=== PATIENT | male | born 1955 | race Caucasian/White ===

== ENCOUNTER 2018-08-28 09:06 | Emergency (ER) | payer MEDICARE ==
[~2018-08-28] VITALS: Ht 177.8 cm; Wt 125.2 kg
--- NOTE | ~2018-08-28 | EKG ---
[place], [place] ELECTROCARDIOGRAM REPORT NAME: RIVERA PACHECO UNIT #: [id number] ROOM: DOCTOR: EPIPHANY DRAFT REPORT BIRTHDATE: [birth year] [facility] Test Date: 2018-08-28 Test Time: 09:59:17 Pat Name: RIVERA PACHECO Department: Room: Gender: Joss House Keeper: : 1955 Requested By: GAIL ECHAVARRIA Order Number: [id number] Reading MD: David Griggs Measurements Intervals [place] Rate: 73 P: 31 TN: 166 QRS: -48 QRSD: 100 T: 10 QT: 442 QTc: 488 Interpretive Statements Sinus rhythm Abnormal R-wave progression, late transition Inferior infarct, old No previous ECG available for comparison Electronically Signed On 08-28-2018 11:58:49 PDT by David Griggs CM:EKGRPT:ELECTROCARDIOGRAM REPORT [id number] GAIL BAKER DRAFT REPORT GAIL ECHAVARRIA MD
[2018-08-28 10:26] LABS: BASO # 0.1 10*3/uL (0.0-0.1); BASO % 0.3 % (0.0-1.0); HEMATOCRIT 47.9 % (42.0-52.0); HEMOGLOBIN 16.6 g/dl (14.0-18.0); LYMPH # 3.1 10*3/uL (1.3-4.4); LYMPH % 15.4 % (27.0-41.0); MEAN CELL VOLUME 87.4 fl (80.0-94.0); MEAN CORPUSCULAR HGB 30.3 pg (27.0-31.0); MEAN CORPUSCULAR HGB CONC 34.7 g/dl (33.0-37.0); MEAN PLATELET VOLUME 9.7 fl (9.6-12.3); MONO # 0.9 10*3/uL (0.1-1.0); MONO % 4.7 % (3.0-9.0); NEUT # 15.8 10*3/uL (2.3-7.9); NEUT % 79.3 % (47.0-73.0); PLATELET COUNT AUTOMATED 238 10*3/uL (130-400); RED BLOOD COUNT 5.48 10*6/uL (4.50-5.90); RED CELL DISTRI WIDTH 12.8 % (0-14.5); WHITE BLOOD COUNT 19.9 10*3/uL (4.8-10.8)
[2018-08-28 10:36] LABS: ABG BASE EXCESS -1.8 mmol/L (-2.0-2.0); ABG HCO3 22.8 mmol/l (22-26); ABG O2 SATURATION 96.8 % (95-97); ARTERIAL BLOOD GAS PH 7.389 (7.35-7.45)
[2018-08-28 10:36] LABS: ACT PARTIAL THROMBO TIME 21.7 SECONDS (20.0-32.1)
[2018-08-28 10:45] LABS: ALBUMIN 3.7 gm/dl (3.1-4.5); ALKALINE PHOSPHATASE 86 U/L (45-117); BUN 23 mg/dl (7-24); CHLORIDE 105 mmol/L (98-107); POTASSIUM 3.7 mmol/L (3.5-5.1); SGOT/AST 39 IU/L (3-35); SGPT/ALT 38 U/L (12-78); SODIUM 140 mmol/L (136-145)
[2018-08-28 10:47] LABS: ETHYL ALCOHOL < 3.0 mg/dl (<3); TROPONIN I < 0.015 ng/ml (<0.045)
== END 2018-08-28 11:25 | disposition short-term general hospital (02) ==
LOC: ED 09:06
PROVIDERS: Emergency Medicine
DX: I61.9 Nontraumatic intracerebral hemorrhage, unspecified (principal)

== ENCOUNTER 2018-11-04 10:52 | Emergency (ER) | payer MEDICARE ==
[~2018-11-04] VITALS: Ht 172.7 cm; Wt 104.8 kg
[2018-11-04 11:55] LABS: BILIRUBIN NEGATIVE (NEGATIVE); BLOOD 1+ (NEGATIVE); CLARITY SL CLOUDY (CLEAR); COLOR YELLOW (YELLOW); GLUCOSE NEGATIVE (NEGATIVE); KETONE NEGATIVE (NEGATIVE); LEUKO ESTERASE NEGATIVE (NEGATIVE); NITRITE NEGATIVE (NEGATIVE); SPECIFIC GRAVITY 1.015 (1.005-1.030)
[2018-11-04 12:04] LABS: BASO # 0.1 10*3/uL (0.0-0.1); BASO % 1.1 % (0.0-1.0); EOS # 0.4 10*3/uL (0.0-0.4); HEMOGLOBIN 12.1 g/dl (14.0-18.0); LYMPH # 3.6 10*3/uL (1.3-4.4); LYMPH % 33.2 % (27.0-41.0); MEAN CELL VOLUME 92.5 fl (80.0-94.0); MEAN CORPUSCULAR HGB 30.3 pg (27.0-31.0); MEAN CORPUSCULAR HGB CONC 32.7 g/dl (33.0-37.0); MEAN PLATELET VOLUME 9.2 fl (9.6-12.3); MONO # 0.7 10*3/uL (0.1-1.0); MONO % 6.5 % (3.0-9.0); NEUT # 5.9 10*3/uL (2.3-7.9); NEUT % 54.6 % (47.0-73.0); PLATELET COUNT AUTOMATED 283 10*3/uL (130-400); RED CELL DISTRI WIDTH 14.8 % (0-14.5); WHITE BLOOD COUNT 10.7 10*3/uL (4.8-10.8)
[2018-11-04 12:15] LABS: BACTERIA 1+; CALCIUM OXALATE CRYSTALS 1+; MUCOUS 1+; RBC TNTC rbc/hpf (0-2)
[2018-11-04 12:19] LABS: ALBUMIN 3.1 gm/dl (3.1-4.5); ALKALINE PHOSPHATASE 170 U/L (45-117); BUN 14 mg/dl (7-24); CHLORIDE 108 mmol/L (98-107); POTASSIUM 3.7 mmol/L (3.5-5.1); SGOT/AST 59 IU/L (3-35); SGPT/ALT 297 U/L (12-78); SODIUM 141 mmol/L (136-145); TOTAL PROTEIN 6.4 gm/dL (6.4-8.2)
--- NOTE | 2018-11-04 13:42 | NUR ---
GENERAL OPHTHALMOLOGIST completed PASRR for the patient to go to [place], however the patients family [facility]. [facility] was [facility] to [facility].-LUKE aBrajas
== END 2018-11-04 17:57 | disposition home or self-care (01) ==
LOC: ED 10:52
PROVIDERS: Emergency Medicine
DX: R33.9 Retention of urine, unspecified (principal); R53.1 Weakness; I12.9 Hypertensive chronic kidney disease with stage 1 through stage 4 chronic kidney disease, or unspecified chronic kidney disease; E11.22 Type 2 diabetes mellitus with diabetic chronic kidney disease; N18.9 Chronic kidney disease, unspecified; I25.10 Atherosclerotic heart disease of native coronary artery without angina pectoris; Z95.1 Presence of aortocoronary bypass graft

== ENCOUNTER → 2018-12-16 | Day surgery (SDC) | payer MEDICARE ==
[~2018-12-16] VITALS: Ht 175.2 cm; Wt 105.2 kg
[~2018-12-16] MED LIST: ACETAMINOPHEN325 M2 PO; AMLODIPINE BESYL5 MG PO; ASPIRIN CHEWABL81 MG PO; CHLORPROMAZINE25 M1 PO; CRESTOR20 M1 PO; DOCUSATE SODIU100 M2 PO; FLOMAX0.4 MG PO; KLOR-CON M2020 ME1 PO; LANTUS SOL100 UNIT/1 SQ; LOSARTAN POTASS25 M1 PO; LOSARTAN POTASS50 M1 PO; PROTONIX40 MG PO; SEROQUEL25 MG PO
[2018-12-16 12:00] VITALS: BP 123/67
--- NOTE | 2018-12-16 12:57 | NUR ---
DR FREEMAN AT BEDSIDE TALKED TO PATIENT AND FAMILY. COMFIRMED REMOVAL OF PEG TUBE. LEONARD IVERSON RN
[2018-12-16 13:13] VITALS: BP 132/75
--- NOTE | 2018-12-16 13:14 | NUR ---
PEG TUBE REMOVED BY DR FREEMAN. PRESSURE DRESSING APPLIED. NO BLEEDING NOTED. PATIENT TOLERATED WELL. DENIES DISCOMFORT. VSS REMAIN STABLE. LEONARD IVERSON RN
--- NOTE | 2018-12-16 13:15 | NUR ---
REPORT CALLED TO CINTHYA NURSE CARING FOR PATIENT AT [facility]. LEONARD IVERSON RN
== END | disposition home or self-care (01) ==
LOC: SDC 12-13 14:00
DX: Z43.1 Encounter for attention to gastrostomy (principal); I69.959 Hemiplegia and hemiparesis following unspecified cerebrovascular disease affecting unspecified side; I10 Essential (primary) hypertension; I25.10 Atherosclerotic heart disease of native coronary artery without angina pectoris; E11.9 Type 2 diabetes mellitus without complications; F41.9 Anxiety disorder, unspecified; F32.9 Major depressive disorder, single episode, unspecified; Z98.890 Other specified postprocedural states; Z79.899 Other long term (current) drug therapy

== ENCOUNTER → 2020-04-27 | Outpatient (CLI) | payer MEDICARE ==
[2020-04-27 10:48] LABS: HEMATOCRIT 47.7 % (42.0-52.0); MEAN CELL VOLUME 87.8 fl (80.0-94.0); MEAN CORPUSCULAR HGB 28.9 pg (27.0-31.0); MEAN CORPUSCULAR HGB CONC 32.9 g/dl (33.0-37.0); MEAN PLATELET VOLUME 9.4 fl (9.6-12.3); PLATELET COUNT AUTOMATED 222 10*3/uL (130-400); RED BLOOD COUNT 5.43 10*6/uL (4.50-5.90); RED CELL DISTRI WIDTH 12.9 % (0-14.5); WHITE BLOOD COUNT 17.2 10*3/uL (4.8-10.8)
[2020-04-27 10:49] LABS: ALBUMIN 3.9 gm/dl (3.1-4.5); BUN 15 mg/dl (7-24); CHLORIDE 108 mmol/L (98-107); CHOLESTEROL 130 mg/dL (<200); CREATININE 1.04 mg/dL (0.70-1.30); POTASSIUM 3.8 mmol/L (3.5-5.1); SGOT/AST 19 IU/L (3-35); SGPT/ALT 25 U/L (12-78); SODIUM 143 mmol/L (136-145); TOTAL PROTEIN 7.1 gm/dL (6.4-8.2); TRIGLYCERIDES 191 mg/dl (<150); VLDL CHOLESTEROL 38 mg/dL (6-40)
[2020-04-27 10:59] LABS: ALKALINE PHOSPHATASE 70 U/L (45-117); HDL CHOLESTEROL 38 mg/dl (40-60); LDL CHOLESTEROL 54 mg/dL (9-159)
[2020-04-27 11:14] LABS: TOTAL CELLS COUNTED 100 #CELLS
[2020-04-27 11:15] LABS: PLATELET SUFFICIENCY NORMAL (NORMAL)
== END | disposition home or self-care (01) ==
LOC: LAB 09:26
PROVIDERS: ATTEND Nurse Practitioner Primary Care
DX: E11.9 Type 2 diabetes mellitus without complications (principal)

== ENCOUNTER → 2020-11-06 | Outpatient (CLI) | payer MEDICARE | END | disposition home or self-care (01) | LOC: CARD 00:13 | PROVIDERS: ATTEND Internal Medicine Cardiovascular Disease | DX: I10 Essential (primary) hypertension (principal); R94.31 Abnormal electrocardiogram [ECG] [EKG]; I25.10 Atherosclerotic heart disease of native coronary artery without angina pectoris; R06.00 Dyspnea, unspecified; Z95.1 Presence of aortocoronary bypass graft ==

== ENCOUNTER 2022-12-26 10:46 | Inpatient (IN) | payer MEDICARE ==
[~2022-12-26] VITALS: Ht 175.2 cm; Wt 106.0 kg
[~2022-12-26 10:46] MED LIST changes: +DECADRON6 M1 PO; +LASIX20 MG PO; +VIBRA-TAB100 MG PO
[2022-12-26 10:50] VITALS: BP 144/85
[2022-12-26 11:44] LABS: HEMATOCRIT 48.4 % (42.0-52.0); MEAN CELL VOLUME 84.5 fl (80.0-94.0); MEAN CORPUSCULAR HGB 29.1 pg (27.0-31.0); MEAN CORPUSCULAR HGB CONC 34.5 g/dl (33.0-37.0); MEAN PLATELET VOLUME 8.8 fl (9.6-12.3); PLATELET COUNT AUTOMATED 189 10*3/uL (130-400); RED BLOOD COUNT 5.73 10*6/uL (4.50-5.90); RED CELL DISTRI WIDTH 13.5 % (0-14.5); WHITE BLOOD COUNT 31.8 10*3/uL (4.8-10.8)
[2022-12-26 11:52] LABS: MANUAL DIFF REFLEX YES
[2022-12-26 11:59] LABS: ACT PARTIAL THROMBO TIME 27.5 SECONDS (20.0-32.1)
[2022-12-26 12:07] LABS: ALKALINE PHOSPHATASE 105 U/L (46-116); BUN 11 mg/dl (9-23); CHLORIDE 108 mmol/L (98-107); LIPASE 34 U/L (12-53); POTASSIUM 4.5 mmol/L (3.4-5.1); SGPT/ALT 15 U/L (10-49); TOTAL PROTEIN 6.4 gm/dL (6.0-8.0)
[2022-12-26 12:15] LABS: ETHYL ALCOHOL < 3.0 mg/dl (<3)
[2022-12-26] MEDS ORDERED: LOSARTAN POTASS50 M1 PO (12:17)
[2022-12-26] MEDS ORDERED: GLIPIZIDE10 M2 PO (12:17)
[2022-12-26] MEDS ORDERED: METFORMIN HYDR500 MG PO (12:18)
[2022-12-26 12:22] VITALS: BP 124/73
[2022-12-26 12:54] LABS: PLATELET SUFFICIENCY NORMAL (NORMAL); TOTAL CELLS COUNTED 100 #CELLS
[2022-12-26 17:31] VITALS: BP 138/77
[2022-12-26 18:12] LABS: BILIRUBIN Negative (Negative); BLOOD Negative (Negative); CLARITY Turbid (Clear); COLOR Yellow (Yellow); GLUCOSE Negative (Negative); KETONE Negative (Negative); LEUKO ESTERASE Negative (Negative); NITRITE Negative (Negative); SPECIFIC GRAVITY >= 1.030 (1.001-1.030)
[2022-12-26 18:19] LABS: URINE AMPHETAMINES Negative (1000ng/ml); URINE BARBITURATES Negative (200ng/ml); URINE BENZODIAZEPINES Negative (200ng/ml); URINE CANNABINOIDS (THC) Negative (50ng/ml); URINE COCAINE Negative (300ng/ml); URINE METHADONE Negative (300ng/ml); URINE OPIATES Negative (300ng/ml); URINE PHENCYCLIDINE Negative (25ng/ml)
[2022-12-26 18:21] LABS: BACTERIA 1+
[2022-12-26 18:22] LABS: WBC 0-2 wbc/hpf (0-5)
[2022-12-26 20:00] VITALS: BP 106/66; BP 150/78
[2022-12-27] VITALS: BP 130/75
[2022-12-27 06:58] LABS: HEMATOCRIT 44.1 % (42.0-52.0); MEAN CELL VOLUME 83.8 fl (80.0-94.0); MEAN CORPUSCULAR HGB 28.9 pg (27.0-31.0); MEAN CORPUSCULAR HGB CONC 34.5 g/dl (33.0-37.0); MEAN PLATELET VOLUME 8.7 fl (9.6-12.3); PLATELET COUNT AUTOMATED 193 10*3/uL (130-400); RED BLOOD COUNT 5.26 10*6/uL (4.50-5.90); RED CELL DISTRI WIDTH 13.4 % (0-14.5); WHITE BLOOD COUNT 34.9 10*3/uL (4.8-10.8)
[2022-12-27 07:01] LABS: MANUAL DIFF REFLEX YES
[2022-12-27 08:00] VITALS: BP 127/81
[2022-12-27 08:09] LABS: BASOPHILS 1 % (0-1); TOTAL CELLS COUNTED 100 #CELLS
[2022-12-27 08:10] LABS: PLATELET SUFFICIENCY NORMAL (NORMAL); ROULEAUX SLIGHT
[2022-12-27 08:51] LABS: ALKALINE PHOSPHATASE 96 U/L (46-116); BUN 7 mg/dl (9-23); CHLORIDE 108 mmol/L (98-107); CHOLESTEROL 216 mg/dL (<200); FREE T4 1.04 ng/dl (0.89-1.76); LDL CHOLESTEROL 134 mg/dL (9-159); SGPT/ALT 11 U/L (10-49); TOTAL PROTEIN 5.8 gm/dL (6.0-8.0); TRIGLYCERIDES 272 mg/dl (<150)
[2022-12-27 09:12] LABS: POTASSIUM 3.5 mmol/L (3.4-5.1)
[2022-12-27 09:40] LABS: VITAMIN D, 25-HYDROXY 28.1 ng/mL (30-100)
[2022-12-27 12:00] VITALS: BP 124/75
[2022-12-27 16:00] VITALS: BP 126/77
[2022-12-27 20:00] VITALS: BP 123/64
[2022-12-28] VITALS: BP 122/81
[2022-12-28 06:41] LABS: BUN 10 mg/dl (9-23); CHLORIDE 108 mmol/L (98-107); POTASSIUM 3.6 mmol/L (3.4-5.1)
[2022-12-28 06:44] LABS: HEMATOCRIT 43.3 % (42.0-52.0); MEAN CELL VOLUME 85.7 fl (80.0-94.0); MEAN CORPUSCULAR HGB 29.5 pg (27.0-31.0); MEAN CORPUSCULAR HGB CONC 34.4 g/dl (33.0-37.0); MEAN PLATELET VOLUME 9.4 fl (9.6-12.3); PLATELET COUNT AUTOMATED 185 10*3/uL (130-400); RED BLOOD COUNT 5.05 10*6/uL (4.50-5.90); RED CELL DISTRI WIDTH 13.5 % (0-14.5); WHITE BLOOD COUNT 32.4 10*3/uL (4.8-10.8)
[2022-12-28 06:50] LABS: MANUAL DIFF REFLEX YES
[2022-12-28 07:26] LABS: BURR CELLS MODERATE; POLYCHROMASIA SLIGHT; TOTAL CELLS COUNTED 100 #CELLS
[2022-12-28 07:27] LABS: PLATELET SUFFICIENCY NORMAL (NORMAL); ROULEAUX SLIGHT
[2022-12-28 08:00] VITALS: BP 129/67
[2022-12-28 12:00] VITALS: BP 129/74
[2022-12-28 16:00] VITALS: BP 110/59
[2022-12-28 20:00] VITALS: BP 123/71
[2022-12-29] VITALS: BP 136/75
[2022-12-29 07:04] LABS: HEMATOCRIT 45.2 % (42.0-52.0); MANUAL DIFF REFLEX YES; MEAN CELL VOLUME 83.4 fl (80.0-94.0); MEAN CORPUSCULAR HGB CONC 34.7 g/dl (33.0-37.0); MEAN PLATELET VOLUME 9.2 fl (9.6-12.3); PLATELET COUNT AUTOMATED 183 10*3/uL (130-400); RED BLOOD COUNT 5.42 10*6/uL (4.50-5.90); RED CELL DISTRI WIDTH 13.6 % (0-14.5); WHITE BLOOD COUNT 28.7 10*3/uL (4.8-10.8)
[2022-12-29 07:26] LABS: BUN 10 mg/dl (9-23); CHLORIDE 108 mmol/L (98-107); POTASSIUM 3.5 mmol/L (3.4-5.1)
[2022-12-29 08:00] VITALS: BP 140/69
[2022-12-29 08:16] LABS: BURR CELLS FEW; POLYCHROMASIA SLIGHT; TOTAL CELLS COUNTED 100 #CELLS
[2022-12-29 08:17] LABS: PLATELET SUFFICIENCY NORMAL (NORMAL); ROULEAUX SLIGHT
[2022-12-29 12:00] VITALS: BP 124/69
[2022-12-29 16:00] VITALS: BP 121/70
[2022-12-29 20:00] VITALS: BP 132/64
[2022-12-30] VITALS: BP 137/80
[2022-12-30 07:15] LABS: HEMATOCRIT 45.4 % (42.0-52.0); MANUAL DIFF REFLEX YES; MEAN CELL VOLUME 84.5 fl (80.0-94.0); MEAN CORPUSCULAR HGB 28.9 pg (27.0-31.0); MEAN CORPUSCULAR HGB CONC 34.1 g/dl (33.0-37.0); MEAN PLATELET VOLUME 9.1 fl (9.6-12.3); PLATELET COUNT AUTOMATED 196 10*3/uL (130-400); RED BLOOD COUNT 5.37 10*6/uL (4.50-5.90); RED CELL DISTRI WIDTH 13.7 % (0-14.5); WHITE BLOOD COUNT 30.5 10*3/uL (4.8-10.8)
[2022-12-30 07:36] LABS: BUN 11 mg/dl (9-23); CHLORIDE 105 mmol/L (98-107); POTASSIUM 3.5 mmol/L (3.4-5.1)
[2022-12-30 08:00] VITALS: BP 137/79
[2022-12-30 08:06] LABS: TOTAL CELLS COUNTED 100 #CELLS
[2022-12-30 08:07] LABS: BURR CELLS FEW; OVALOCYTES FEW; PLATELET SUFFICIENCY NORMAL (NORMAL); POLYCHROMASIA SLIGHT
[2022-12-30] MEDS ORDERED: CLOPIDOGREL75 MG PO (10:22)
[2022-12-30] MEDS ORDERED: VITAMIN D250 MCG PO (10:23)
[2022-12-30 12:00] VITALS: BP 127/69
== END 2022-12-30 14:43 | DRG 64 ==
LOC: ED 10:46 → EDHOLD 15:50 → 5E 15:50 → EDHOLD 16:53 → 5E 19:37
PROVIDERS: Internal Medicine; Student in an Organized Health Care Education/Training Program; ADMIT Internal Medicine; ATTEND Internal Medicine
DX: I63.9 Cerebral infarction, unspecified (principal); G93.41 Metabolic encephalopathy; J15.9 Unspecified bacterial pneumonia; N39.0 Urinary tract infection, site not specified; J98.11 Atelectasis; C91.10 Chronic lymphocytic leukemia of B-cell type not having achieved remission; R29.706 NIHSS score 6; I25.10 Atherosclerotic heart disease of native coronary artery without angina pectoris; E66.9 Obesity, unspecified; E11.65 Type 2 diabetes mellitus with hyperglycemia; E78.49 Other hyperlipidemia; S31.20XA Unspecified open wound of penis, initial encounter; Z95.1 Presence of aortocoronary bypass graft; Z80.1 Family history of malignant neoplasm of trachea, bronchus and lung; X58.XXXA Exposure to other specified factors, initial encounter; Y93.89 Activity, other specified; Y92.89 Other specified places as the place of occurrence of the external cause; Y99.8 Other external cause status; Z68.34 Body mass index [BMI] 34.0-34.9, adult

== ENCOUNTER 2023-03-18 15:09 | Emergency (ER) | payer MEDICARE ==
[~2023-03-18] VITALS: Ht 172.7 cm; Wt 104.3 kg
[~2023-03-18 15:09] MED LIST changes: +CLOPIDOGREL75 MG PO; +GLIPIZIDE10 M2 PO; +METFORMIN HYDR500 MG PO; +VITAMIN D250 MCG PO
[2023-03-18] MEDS ORDERED: ROSUVASTATIN CA20 MG PO (18:03)
[2023-03-18 18:05] LABS: HEMATOCRIT 46.3 % (42.0-52.0); MEAN CELL VOLUME 85.3 fl (80.0-94.0); MEAN CORPUSCULAR HGB 29.1 pg (27.0-31.0); MEAN CORPUSCULAR HGB CONC 34.1 g/dl (33.0-37.0); MEAN PLATELET VOLUME 8.5 fl (9.6-12.3); PLATELET COUNT AUTOMATED 197 10*3/uL (130-400); RED BLOOD COUNT 5.43 10*6/uL (4.50-5.90); RED CELL DISTRI WIDTH 13.6 % (0-14.5); WHITE BLOOD COUNT 30.8 10*3/uL (4.8-10.8)
[2023-03-18 18:17] LABS: MANUAL DIFF REFLEX YES
[2023-03-18 18:34] LABS: ALKALINE PHOSPHATASE 114 U/L (46-116); BUN 10 mg/dl (9-23); CHLORIDE 104 mmol/L (98-107); POTASSIUM 3.9 mmol/L (3.4-5.1); SGPT/ALT 15 U/L (5-49); TOTAL PROTEIN 6.4 gm/dL (6.0-8.0)
[2023-03-18 19:16] LABS: TOTAL CELLS COUNTED 100 #CELLS
[2023-03-18 19:17] LABS: PLATELET SUFFICIENCY NORMAL (NORMAL)
[2023-03-18 19:19] LABS: STOMATOCYTE FEW
[2023-03-18 19:20] LABS: ATYPICAL LYMPHS 3 % (0-0)
== END 2023-03-18 19:09 | disposition home or self-care (01) ==
LOC: ED 15:09
PROVIDERS: Family Medicine
DX: I87.2 Venous insufficiency (chronic) (peripheral) (principal); R60.0 Localized edema; I73.9 Peripheral vascular disease, unspecified; R23.0 Cyanosis; F17.210 Nicotine dependence, cigarettes, uncomplicated; Z88.8 Allergy status to other drugs, medicaments and biological substances; Z79.899 Other long term (current) drug therapy; Z79.82 Long term (current) use of aspirin; Z98.61 Coronary angioplasty status

== ENCOUNTER → 2024-02-10 | Outpatient (CLI) | payer MEDICARE ==
[~2024-02-10] MED LIST changes: +ROSUVASTATIN CA20 MG PO
== END | disposition home or self-care (01) ==
LOC: RAD 10:53
PROVIDERS: ATTEND Family Medicine
DX: R13.10 Dysphagia, unspecified (principal)

== ENCOUNTER 2024-02-20 09:23 | Emergency (ER) | payer MEDICARE ==
[~2024-02-20] VITALS: Ht 177.8 cm; Wt 97.5 kg
[2024-02-20] MEDS ORDERED: SODIUM CHLORIDE 0.9% 1,000 ML IV ONE (09:40)
[2024-02-20 10:18] LABS: HEMATOCRIT 46.3 % (42.0-52.0); MEAN CELL VOLUME 86.1 fl (80.0-94.0); MEAN CORPUSCULAR HGB CONC 33.7 g/dl (33.0-37.0); MEAN PLATELET VOLUME 9.1 fl (9.6-12.3); PLATELET COUNT AUTOMATED 191 10*3/uL (130-400); RED BLOOD COUNT 5.38 10*6/uL (4.50-5.90); RED CELL DISTRI WIDTH 13.4 % (0-14.5)
[2024-02-20 10:27] LABS: MANUAL DIFF REFLEX YES; WHITE BLOOD COUNT 54.3 10*3/uL (4.8-10.8)
[2024-02-20 10:38] LABS: BUN 20 mg/dl (9-23); CHLORIDE 101 mmol/L (98-107); POTASSIUM 3.4 mmol/L (3.4-5.1)
[2024-02-20 10:39] LABS: BASOPHILS 1 % (0-1); TOTAL CELLS COUNTED 100 #CELLS
[2024-02-20 10:40] LABS: PLATELET SUFFICIENCY NORMAL (NORMAL)
== END 2024-02-20 12:44 | disposition short-term general hospital (02) ==
LOC: ED 09:23
PROVIDERS: Emergency Medicine
DX: R33.9 Retention of urine, unspecified (principal); I10 Essential (primary) hypertension; E78.5 Hyperlipidemia, unspecified; E11.9 Type 2 diabetes mellitus without complications; I25.10 Atherosclerotic heart disease of native coronary artery without angina pectoris; Z88.8 Allergy status to other drugs, medicaments and biological substances; Z79.899 Other long term (current) drug therapy; Z79.84 Long term (current) use of oral hypoglycemic drugs; Z79.82 Long term (current) use of aspirin; Z86.73 Personal history of transient ischemic attack (TIA), and cerebral infarction without residual deficits

== ENCOUNTER 2024-04-29 00:02 | Emergency (ER) | payer MEDICARE ==
[~2024-04-29] VITALS: Wt 89.4 kg
[~2024-04-29 00:02] MED LIST changes: +ALPRAZOLAM0.25 M2 PO; +AMOX-CLAV 875-1 EACH PO; +CEPHALEXIN500 M1 PO; +FINASTERIDE5 M1 PO; +FUROSEMIDE40 MG PO; +KEFLEX 500 MG E2 CAP PO; +ROSUVASTATIN CA40 MG PO; +SEPTDS PO; +VITAMIN D350 MCG PO
[2024-04-29 00:38] LABS: BILIRUBIN Negative (Negative); BLOOD 2+ (Negative); CLARITY Cloudy (Clear); COLOR Yellow (Yellow); GLUCOSE 1+ (Negative); HEMATOCRIT 43.1 % (42.0-52.0); KETONE Negative (Negative); LEUKO ESTERASE 1+ (Negative); MEAN CORPUSCULAR HGB 28.8 pg (27.0-31.0); MEAN CORPUSCULAR HGB CONC 32.7 g/dl (33.0-37.0); MEAN PLATELET VOLUME 8.8 fl (9.6-12.3); NITRITE Negative (Negative); PH 5.5 (4.5-8.0); PLATELET COUNT AUTOMATED 234 10*3/uL (130-400); RED CELL DISTRI WIDTH 14.4 % (0-14.5); SPECIFIC GRAVITY 1.015 (1.001-1.030); UROBILINOGEN 0.2 E.U./dl (0.0-1.0)
[2024-04-29 00:52] LABS: MANUAL DIFF REFLEX YES
[2024-04-29 00:53] LABS: WHITE BLOOD COUNT 57.3 10*3/uL (4.8-10.8)
[2024-04-29 00:58] LABS: BUN 16 mg/dl (9-23); CHLORIDE 97 mmol/L (98-107); POTASSIUM 4.2 mmol/L (3.4-5.1)
[2024-04-29 01:32] LABS: PLATELET SUFFICIENCY NORMAL (NORMAL); TOTAL CELLS COUNTED 100 #CELLS
[2024-04-29 01:33] LABS: MICROCYTOSIS SLIGHT; OVALOCYTES FEW
[2024-04-29 01:39] LABS: BACTERIA TRACE; RBC 21-30 rbc/hpf (0-2); URIC ACID CRYSTALS 1+
== END 2024-04-29 02:15 | disposition home or self-care (01) ==
LOC: ED 00:02
PROVIDERS: Internal Medicine
DX: R31.9 Hematuria, unspecified (principal); I10 Essential (primary) hypertension; I25.10 Atherosclerotic heart disease of native coronary artery without angina pectoris; E11.9 Type 2 diabetes mellitus without complications; F32.A Depression, unspecified; E78.00 Pure hypercholesterolemia, unspecified; Z79.4 Long term (current) use of insulin; Z88.8 Allergy status to other drugs, medicaments and biological substances; Z98.890 Other specified postprocedural states; Z95.1 Presence of aortocoronary bypass graft